=== PATIENT | female | born 1990 | race Two or more races ===

== ENCOUNTER 2025-02-08 14:57 | Emergency (ER) | payer BC ==
[~2025-02-08] VITALS: Ht 167.6 cm; Wt 102.1 kg
[2025-02-08 18:36] LABS: BASO % 0.2 % (0.1-1.2); EOS % 0.7 % (0.7-7.0); HEMATOCRIT 34.6 % (34.1-44.9); HEMOGLOBIN 10.8 g/dL (11.2-15.7); LYMPH # 2.64 (1.18-3.74); LYMPH % 19.6 % (19.3-53.1); MEAN CORPUSCULAR HEMOGLOBIN 20.3 pg (25.6-32.2); MONO # 1.29 (0.24-0.82); MONO % 9.6 % (4.7-12.5); NEUT # 9.35 (1.56-6.13); NEUT % 69.6 % (34.0-71.1); PLATELET COUNT 417 K/uL (163-369); RED BLOOD COUNT 5.32 M/uL (3.93-5.22); RED CELL DISTRIBUTION WIDTH 17.9 % (11.6-14.4)
[2025-02-08 19:57] LABS: PH,URINE 5.5 (5.0-8.0); URINE APPEARANCE Turbid; URINE BILIRRUBIN Negative (NEGATIVE); URINE BLOOD Large; URINE COLOR Dark Yellow; URINE GLUCOSE Negative (NEGATIVE); URINE KETONE Trace (NEGATIVE); URINE LEUKOCYTE Large; URINE NITRATE Positive; URINE UROBILINOGEN 0.2 E.U./dl
[2025-02-08 19:58] LABS: URINE CAST 3.68 uL (0.0-1.40); URINE EPITHELIAL CELLS 22.1 uL (0.0-38.8); URINE RBC 821.2 uL (0.0-20.8)
[2025-02-08 20:21] LABS: URINE BACTERIA > 9821.5 uL (0.0-1933); URINE PROTEIN 300 (NEGATIVE); URINE WBC > 5548.3 uL (0.0-23.2)
[2025-02-08] MEDS ORDERED: CEFTRIAXONE SODIUM 2,000 MG VIAL IV ONE (20:45)
[2025-02-08] MEDS ORDERED: levoFLOXacin IN DEXTROSE 5 % 5 MG/ML PIGGYBAG IV ONE (21:00)
[2025-02-08 21:25] LABS: ALBUMIN 3.8 gm/dL (3.4-5.0); BILIRUBIN TOTAL 0.35 mg/dL (0.3-1.2); CREATININE SERUM 0.77 mg/dL (0.55-1.02); GFR 85.81; GLOBULINA 4.4 G/DL (2.4-3.5); POTASSIUM 4.15 mEq/L (3.5-5.1); TOTAL PROTEIN 8.2 gm/dL (6.4-8.2)
[2025-02-08] MEDS ORDERED: MORPHINE SULFATE 2 MG/ML SYRINGE IV ONE (22:15)
[2025-02-08] MEDS ORDERED: LEVOFLOXACIN750 MG PO (23:13)
[2025-02-08] MEDS ORDERED: PYRIDIUM200 MG PO (23:13)
== END 2025-02-09 00:25 | disposition home or self-care (01) ==
LOC: ER 15:27
PROVIDERS: Preventive Medicine Public Health & General Preventive Medicine
DX: N39.0 Urinary tract infection, site not specified (principal); L40.8 Other psoriasis; E28.2 Polycystic ovarian syndrome